=== PATIENT | male | born 1985 | race Caucasian/White ===

== ENCOUNTER → 2019-10-20 | Outpatient (CLI) | payer OTHER ==
[~2019-10-20] MED LIST: GADOBUTROL 2 MMOL/2 ML VIAL ONE; LIDOCAINE-MPF 1%, 5ML ONE
== END | disposition home or self-care (01) ==
LOC: RAD 07:37
PROVIDERS: ATTEND Orthopaedic Surgery Adult Reconstructive Orthopaedic Surgery
DX: M25.552 Pain in left hip (principal)
CPT/HCPCS: 73525; 73722; A9585

== ENCOUNTER 2019-10-27 07:05 | Outpatient (CLI) | payer OTHER | END 2019-10-27 23:59 | disposition home or self-care (01) | LOC: RAD 07:05 | PROVIDERS: ATTEND Orthopaedic Surgery Adult Reconstructive Orthopaedic Surgery | DX: M25.552 Pain in left hip (principal) ==